=== PATIENT | female | born 1950 | race Caucasian/White ===

== ENCOUNTER 2017-04-01 07:26 | Day surgery (SDC) | payer BC, OTHER ==
--- NOTE | ~2017-04-01 | EGD ---
EGD REPORT [facility] [address] [place] [address] NAME: BRIAN KLEIN : [birth year] STATUS : REG [facility]#: [id number] AGE: 66 ADM/REG DATE : 04/01/17 MR#: [id number] REPORT SERV DATE: 04/01/17 DICTATED BY: CARLOS CUNNINGHAM DATE: 04/01/17 REPORT STATUS : Draft TRANSCRIBED BY: [facility] DATE: 04/01/17 Endoscopy Center Patient Name: Brian Klein Date of : 1950 Attending MD: CARLOS CUNNINGHAM MD Procedure Date No Time: 04/01/2017 Procedure: Upper GI endoscopy Indications: Epigastric abdominal pain Referring MD: WILDER AVENDANO Medicines: Propofol per Anesthesia Complications: No immediate complications. Procedure: After obtaining informed consent, the endoscope was passed under direct vision. Throughout the procedure, the patient's blood pressure, pulse, and oxygen saturations were monitored continuously. The GIF [id number] was introduced through the mouth, and advanced to the third part of duodenum. The upper GI endoscopy was accomplished without difficulty. The patient tolerated the procedure well. Findings: A large hiatus hernia was present. The exam was otherwise without abnormality. Impression: - Hiatus hernia. - The examination was otherwise normal. Procedure Code(s): --- Professional --- 48262, Esophagogastroduodenoscopy, flexible, transoral; diagnostic, including collection of specimen(s) by brushing or washing, when performed (separate procedure) Diagnosis Code(s): --- Professional --- K44.9, Diaphragmatic hernia without obstruction or gangrene R10.13, Epigastric pain CPT copyright 2013 [employer]. All rights reserved. The codes documented in this report are preliminary and upon floor and wall applier liquid review may be revised to meet current compliance requirements. CARLOS CUNNINGHAM MD EGD REPORT [facility] [address] [place] [address] NAME: BRIAN KLEIN : [birth year] STATUS : REG [facility]#: [id number] AGE: 66 ADM/REG DATE : 04/01/17 MR#: [id number] REPORT SERV DATE: 04/01/17 DICTATED BY: CARLOS CUNNINGHAM DATE: 04/01/17 REPORT STATUS : Draft TRANSCRIBED BY: [employer]. SERVICES DATE: 04/01/17 04/01/2017 9:18 AM This report has been signed electronically. Number of Addenda: 0 Note Initiated On: 04/01/2017 9:05 AM Scope Withdrawal Time 0 hours 0 minutes 0 seconds [address] [place] [address]
[~2017-04-01 07:26] MED LIST: CLARIT10 PO; KLOR-CON 1010 MEQ PO; L40 PO; LYRICA100 MG PO; MIRAPEX5 PO; NEXIUM40 PO; NORCO1 TA2 PO; ORAMORPH SR15 MG PO; PERCOCET 10/3251 TAB PO; PR25 PO; PRILOSEC40 MG PO; PRIN5 PO; TASIGNA150 MG PO; THEREMS H PO; VENTOLIN HFA INH; VOLT75 PO; XANAX1 MG PO; ZANAFLEX 4 MG TA4 MG PO; ZOFRAN4 PO
[2017-04-01 12:02] LABS: CREATININE 0.6 MG/DL (0.55-1.02)
[2017-04-18] MEDS ORDERED: SPIRIVA RESPIMAT INH (10:32)
[2017-04-18] MEDS ORDERED: LEVEMIR SC (10:33)
== END 2017-04-01 23:59 | disposition home or self-care (01) ==
LOC: DMU 07:26
PROVIDERS: Internal Medicine Gastroenterology
PROC: 0DJ08ZZ Inspection of Upper Intestinal Tract, Via Natural or Artificial Opening Endoscopic (ICD-10-PCS; principal; 2017-04-01 08:30)
DX: K44.9 Diaphragmatic hernia without obstruction or gangrene (principal); B19.20 Unspecified viral hepatitis C without hepatic coma; K21.9 Gastro-esophageal reflux disease without esophagitis; J44.9 Chronic obstructive pulmonary disease, unspecified; J45.909 Unspecified asthma, uncomplicated; D64.9 Anemia, unspecified; Z88.2 Allergy status to sulfonamides; Z79.899 Other long term (current) drug therapy
CPT/HCPCS: 72158; 82962; A9577

== ENCOUNTER 2017-04-11 08:35 | Emergency (ER) | payer BC, OTHER ==
[2017-04-18] MEDS ORDERED: SPIRIVA RESPIMAT INH (10:32)
[2017-04-18] MEDS ORDERED: LEVEMIR SC (10:33)
== END 2017-04-11 10:17 | disposition home or self-care (01) ==
LOC: ER 08:35
PROC: 2W3DX1Z Immobilization of Left Lower Arm using Splint (ICD-10-PCS; principal; 2017-04-11)
DX: S52.502A Unspecified fracture of the lower end of left radius, initial encounter for closed fracture (principal); Z88.2 Allergy status to sulfonamides; Z79.899 Other long term (current) drug therapy; W19.XXXA Unspecified fall, initial encounter
CPT/HCPCS: 73110-LT; 73130-LT; 99283; A9270-GY

== ENCOUNTER 2017-04-19 11:55 | Day surgery (SDC) | payer BC, OTHER ==
--- NOTE | ~2017-04-19 | OP ---
Record Of Operation [facility] [address] [place]. [address] NAME: GREGG KLEIN : [birth year] STATUS : REG [facility]#: [id number] AGE: 66 ADM/REG DATE : 04/19/17 MR#: [id number] REPORT SERV DATE: 04/19/17 DICTATED BY: RAUL GRANT DATE: 04/19/17 REPORT STATUS : Draft TRANSCRIBED BY: MODL DATE: 04/19/17 DATE OF PROCEDURE: 04/19/2017 PREOPERATIVE DIAGNOSIS: Fall on 04/11/2017 with severely comminuted left wrist distal radius intra-articular fracture greater than three fracture fragments. POSTOPERATIVE DIAGNOSIS: Fall on 04/11/2017 with severely comminuted left wrist distal radius intra-articular fracture greater than three fracture fragments. PROCEDURES: Open reduction and internal fixation using an Acumed volar plate distal radius system. PRODUCTION ANALYST: Philip. ANESTHESIA: Regional with MAC and general. ESTIMATED BLOOD LOSS: 5 mL. COMPLICATIONS: None. DISPOSITION: The patient tolerated the procedure well and was brought to the recovery room in stable condition. PROCEDURE NOTE: After regional block and pain pump catheter was administered by the Anesthesia Department in the preop holding area, the patient was brought to the operating room and placed in the supine position. After IV sedation was given, the patient has severe spinal deformity had to be corrected by propping up the posterior back to help compensate for her severe kyphosis. The patient was awake during this part of the time and reported no discomfort of her back and neck. A pneumatic tourniquet was placed around the left proximal arm and during the prepping the patient complained of pain. At this time, the patient was put under general anesthesia and the prepping continued. Afterwards, a surgical timeout was performed and after the arm was draped, the left upper extremity distal to the tourniquet was exsanguinated with the help of an Esmarch. Tourniquet was inflated. A 15 blade scalpel was used to make an 8-10 cm longitudinal incision starting at the volar wrist crease overlying the FCR tendon. The incision was directed proximally overlying the FCR tendon and after the skin was incised the FCR tendon was moved ulnarly to reveal the superficial fascia of the arm. This was incised along the length of the FCR tendon and the fracture hematoma was evacuated. Blunt finger dissection was brought down to the fracture site and the pronator quadratus muscle was damaged. The rest of the pronator quadratus muscle was released off the radial aspect of the radius and the fracture site was then reduced by traction and propping up the intra-articular fracture fragments with a Winslow elevator and then the backside of a curette. All intra-articular fracture fragments appeared reduced and the volar plate was then placed and then screwed in place with two proximal 3.5 mm screws. The more proximal was put in the slotted hole, it was nonlocking, while the more distal one was a locking screw. More distally, four separate 2.3 mm screws Record Of Operation [facility] [address] [facility] [place]. [address] NAME: GREGG LKEIN : 52 STATUS : REG [facility]#: [id number] AGE: 66 ADM/REG DATE : 04/19/17 MR#: [id number] REPORT SERV DATE: 04/19/17 DICTATED BY: RAUL GRANT DATE: 04/19/17 REPORT STATUS : Draft TRANSCRIBED BY: POPPY DATE: 04/19/17 were placed after first pre-drilling, measuring, and placing the appropriate length screws. Good reduction and fixation was able to be achieved through this manner and the wrist was put through range of motion and the fracture was noted to be stable. The wound was irrigated and the pronator quadratus muscle was allowed to drape over the plate. The skin was closed with deep and running Monocryl suture. Steri-Strips, sterile dressing, a volar splint was applied. Tourniquet was released. The arm was placed in a sling and the patient was taken out of general anesthesia and was ready to be brought to the recovery room in stable condition. VALENTINE/POPPY Raul Grant M.D. / [id number] CC: Noe Coles M.D.
[~2017-04-19 11:55] MED LIST changes: +LEVEMIR SC; +SPIRIVA RESPIMAT INH
[2017-04-19 12:47] LABS: BASOPHILS 0.9 %; BASOPHILS ABSOLUTE 0.05 10/3/uL (0.0-0.16); EOSINOPHILS 5.6 %; EOSINOPHILS ABSOLUTE 0.31 10/3/uL (0.0-0.53); HEMATOCRIT 40.6 % (36.0-48.0); HEMOGLOBIN 13.5 g/dL (12.0-16.0); IMMATURE GRANULOCYTES 0.4 %; IMMATURE GRANULOCYTES ABSOLUTE 0.02 10/3/uL (0.0-0.11); LYMPHOCYTES 30.1 %; LYMPHOCYTES ABSOLUTE 1.66 10/3/uL (0.67-4.30); MANUAL DIFF NO %; MEAN CORPUS HGB CONC 33.3 g/dL (32.0-36.0); MEAN CORPUSCULAR HEMOGLOB 31.5 pg (26.0-34.0); MEAN CORPUSCULAR VOLUME 94.6 fL (80-100); MEAN PLATELET VOLUME 9.3 fL (9.2-13.0); MONOCYTES 10.7 %; MONOCYTES ABSOLUTE 0.59 10/3/uL (0.21-1.20); NEUTROPHILS 52.3 %; NEUTROPHILS ABSOLUTE 2.89 10/3/uL (2.02-8.40); PLATELET COUNT 348 10/3/uL (150-400); RBC DISTRIBUTION WIDTH 15.2 % (12.0-16.0); RED CELL COUNT 4.29 10/6/uL (4.0-5.6); WHITE BLOOD CELLS 5.5 10/3/uL (4.5-10.5)
[2017-04-19 13:04] LABS: ALBUMIN 3.4 G/DL (3.5-5.0); ALKALINE PHOSPHATASE 82 U/L (45-117); BUN (BLOOD UREA NITROGEN) 6 MG/DL (6-23); CALCIUM, SERUM 8.8 MG/DL (8.5-10.4); CHLORIDE, SERUM 108 MMOL/L (96-112); CO2 (CARBON DIOXIDE) 31 MMOL/L (24-34); CREATININE 0.64 MG/DL (0.55-1.02); DIRECT BILIRUBIN 0.2 MG/DL (0.0-0.4); GFR AFRICAN AMERICAN 109 ML/MIN (>=60); GFR NON AFRICAN AMERICAN 94 ML/MIN (>=60); GLUCOSE, SERUM 128 MG/DL (60-99); INDIRECT BILIRUBIN(NOT ORDER) 0.6 MG/DL (0.1-0.9); POTASSIUM, SERUM 4.1 MMOL/L (3.5-5.3); SGOT(AST) 32 U/L (5-40); SGPT(ALT) 28 U/L (5-65); SODIUM, SERUM 141 MMOL/L (135-148); TOTAL BILIRUBIN 0.8 MG/DL (0-1.2); TOTAL PROTEIN 7.8 G/DL (6.0-8.5)
== END 2017-04-19 21:20 | disposition home or self-care (01) ==
LOC: SDC 11:55
PROVIDERS: Orthopaedic Surgery Hand Surgery
PROC: 0PSJ04Z Reposition Left Radius with Internal Fixation Device, Open Approach (ICD-10-PCS; principal; 2017-04-19 14:15)
DX: S52.572A Other intraarticular fracture of lower end of left radius, initial encounter for closed fracture (principal); J44.9 Chronic obstructive pulmonary disease, unspecified; E11.9 Type 2 diabetes mellitus without complications; J45.909 Unspecified asthma, uncomplicated; M19.90 Unspecified osteoarthritis, unspecified site; J42 Unspecified chronic bronchitis; F41.9 Anxiety disorder, unspecified; Z88.2 Allergy status to sulfonamides; M54.5 Low back pain; M54.9 Dorsalgia, unspecified; Z90.49 Acquired absence of other specified parts of digestive tract; Z90.710 Acquired absence of both cervix and uterus
CPT/HCPCS: 80048; 80076; 82962; 85025; 93005; A9270-GY; C1713; J0690; J1170; J2250; J2270; J2795; J3010